=== PATIENT | male | born 1955 | race Caucasian/White ===

== ENCOUNTER → 2019-11-14 | Outpatient (REF) | payer OTHER, MEDICARE | LOC: M LAB REF 16:54 | PROVIDERS: ATTEND Dermatology | DX: C44.310 Basal cell carcinoma of skin of unspecified parts of face (principal); C44.619 Basal cell carcinoma of skin of left upper limb, including shoulder; C44.519 Basal cell carcinoma of skin of other part of trunk | CPT/HCPCS: 11102; 11103; 88305; G0463 ==

== ENCOUNTER → 2020-01-07 | Outpatient (REF) | payer MEDICARE, OTHER | LOC: M LAB REF 12:31 | PROVIDERS: ATTEND Dermatology | DX: C44.319 Basal cell carcinoma of skin of other parts of face (principal) ==

== ENCOUNTER → 2020-01-13 | Outpatient (REF) | payer MEDICARE, OTHER | LOC: M LAB REF 19:14 | PROVIDERS: ATTEND Dermatology | DX: L57.0 Actinic keratosis (principal) ==

== ENCOUNTER → 2020-05-03 | Outpatient (CLI) | payer SELFPAY | LOC: M LABSMTC 14:35 | PROVIDERS: ATTEND Pediatrics | DX: Z20.828 Contact with and (suspected) exposure to other viral communicable diseases (principal) ==

== ENCOUNTER → 2020-05-04 | Outpatient (CLI) | payer MEDICARE ==
--- NOTE | 2020-05-06 15:10 | SLEEPHOME ---
DIAGNOSTIC HOME SLEEP TEST DATE: 05/04/2020 ORDERED BY: ALVINA COTA Diagnostic home sleep testing was performed due to concern for the obstructive sleep apnea syndrome in this patient with a history of excessive somnolence and nonrestorative sleep who has the comorbidity of hypertension. For testing, a nocturnal T3 respiratory monitoring device was used. Continuous record was made of pulse, oxygen saturation, air flow, chest and abdominal strain, and body position. 11 hours and 8 minutes of data were reviewed. There were 8 hours and 4 minutes marked as time in bed. During the interval marked time in bed, there were 479 respiratory events identified of 10 seconds in duration or greater. The events were not exclusive to sleep position, they were primarily obstructive; though 79 mixed and central apneas were also seen. Baseline pulse rate 53 beats per minute. Pulse rate range 34 to 80. Baseline saturation was 93%. Saturations fell to 74%. Testing was performed in both the supine and non-supine positions. IMPRESSION: Abnormal home sleep testing with repetitive respiratory events and oxygen desaturations to 74% and a respiratory event index of 59.3 is consistent with severe obstructive sleep apnea syndrome. RECOMMENDATION: The patient should be encouraged to undergo a formal sleep evaluation and will likely require inpatient pressure titration, given the profound oxygen desaturations and the occurrence of central apneic events.
== END ==
LOC: M SLEEP HO 14:33
PROVIDERS: ATTEND Physician Assistant
DX: R06.83 Snoring (principal); R40.0 Somnolence; G47.30 Sleep apnea, unspecified

== ENCOUNTER → 2020-06-30 | Outpatient (CLI) | payer MEDICARE ==
--- NOTE | 2020-07-01 18:14 | SLEEPCENT ---
NOCTURNAL POLYSOMNOGRAPHY CPAP TITRATION DATE: 06/30/2020 ORDERED BY: CHIP Corona Nocturnal polysomnography was performed for the titration of pressure therapy in this patient with a clinical diagnosis of obstructive sleep apnea syndrome confirmed by home testing, revealing a respiratory event index of 59.3. For testing a ResMed Quattro full face mask of medium size was used, 4 cm of water pressure were applied to the circuit, and the lights were extinguished. 8 hours and 17 minutes of data were reviewed. There were 297 minutes of sleep identified. Sleep latency was prolonged at 35.5 minutes. REM latency was short at 67 minutes. Sleep architecture was good with four REM cycles. There was a period of wake around 3 to 5 a.m. resulting in a reduced sleep efficiency of 60.4%. The electrocardiogram showed a sinus rhythm with an average heart rate of 50 beats per minute. EEG showed normal waveforms for wake and sleep. Respiratory events were best palliated with CPAP at a pressure of +12 and remaining measures of sleep physiology were normal. IMPRESSION: Obstructive sleep apnea syndrome (G47.31). RECOMMENDATION: Nightly use of pressure therapy 12 cm of water. Monika Lawson MD
== END ==
LOC: M SLEEP 20:00
PROVIDERS: ATTEND Physician Assistant
DX: G47.31 Primary central sleep apnea (principal)

== ENCOUNTER → 2020-07-15 | Outpatient (REF) | payer MEDICARE, OTHER | LOC: M LAB REF 17:13 | PROVIDERS: ATTEND Dermatology | DX: C44.319 Basal cell carcinoma of skin of other parts of face (principal) | CPT/HCPCS: 11102; 88305; G0463 ==

== ENCOUNTER → 2020-10-19 | Outpatient (REF) | payer OTHER | LOC: M LAB REF 17:13 | PROVIDERS: ATTEND Dermatology | DX: C44.41 Basal cell carcinoma of skin of scalp and neck (principal); L90.5 Scar conditions and fibrosis of skin ==

== ENCOUNTER → 2020-11-09 | Outpatient (REF) | payer OTHER | LOC: M LAB REF 09:15 | PROVIDERS: ATTEND Dermatology | DX: L90.5 Scar conditions and fibrosis of skin (principal) | CPT/HCPCS: 14021; 15220; 88305; 88331; 88332; G0463 ==

== ENCOUNTER → 2020-12-15 | Outpatient (CLI) | payer SELFPAY | LOC: M LABSMTC 09:49 | PROVIDERS: ATTEND Pediatrics | DX: Z20.822 Contact with and (suspected) exposure to COVID-19 (principal) ==

== ENCOUNTER → 2021-11-13 | Outpatient (CLI) | payer MEDICARE, OTHER ==
[~2021-11-13] MED LIST: CETI-24 PO; HYDR12.55 PO; ROSU5TAB5 PO; VALS1TAB67 PO
== END ==
LOC: M LABSMTC 12:07
PROVIDERS: ATTEND Anesthesiology
DX: Z11.52 Encounter for screening for COVID-19 (principal); Z20.822 Contact with and (suspected) exposure to COVID-19

== ENCOUNTER 2021-11-16 07:59 | Day surgery (SDC) | payer MEDICARE ==
[~2021-11-16] VITALS: Ht 177.8 cm; Wt 97.1 kg
[~2021-11-16 07:59] MED LIST changes: +NS 1,000 ML IV ONE
[2021-11-16] MEDS ORDERED: propofoL 200 MG/20 ML VIAL As Ordered ONE ×2 (09:21→09:31)
[2021-11-16 09:51] VITALS: BP 163/83
== END 2021-11-16 09:56 | disposition home or self-care (01) ==
LOC: M OPP 07:59
PROVIDERS: ATTEND Surgery
DX: Z12.11 Encounter for screening for malignant neoplasm of colon (principal); D12.8 Benign neoplasm of rectum; K64.1 Second degree hemorrhoids; Z79.02 Long term (current) use of antithrombotics/antiplatelets; Z79.899 Other long term (current) drug therapy

== ENCOUNTER → 2023-05-08 | Outpatient (CLI) | payer MEDICARE, OTHER ==
[~2023-05-08] MED LIST changes: -NS 1,000 ML IV ONE
== END ==
LOC: M SLEEP 20:00
PROVIDERS: ATTEND Physician Assistant
DX: G47.33 Obstructive sleep apnea (adult) (pediatric) (principal)

== ENCOUNTER → 2023-07-30 | Outpatient (CLI) | payer MEDICARE, OTHER | LOC: M WUC 14:08 | PROVIDERS: ATTEND Nurse Practitioner Family | DX: M54.2 Cervicalgia (principal); M25.511 Pain in right shoulder ==

== ENCOUNTER → 2024-01-31 | Outpatient (REF) | payer MEDICARE, OTHER ==
[~2024-01-31] MED LIST changes: +ROSU5TAB40 PO; -ROSU5TAB5 PO
== END ==
LOC: M SFHCDERM 17:29
PROVIDERS: ATTEND Physician Assistant
DX: C44.511 Basal cell carcinoma of skin of breast (principal)

== ENCOUNTER → 2024-08-11 | Outpatient (REF) | payer OTHER ==
[~2024-08-11] MED LIST changes: -ROSU5TAB40 PO; +ROSU5TAB49 PO
== END ==
LOC: M SFHCDERM 17:15
PROVIDERS: ATTEND Physician Assistant
DX: L82.1 Other seborrheic keratosis (principal)